=== PATIENT | female | born 1975 | race Caucasian/White ===

== ENCOUNTER 2016-06-07 00:42 | Emergency (ER) | payer SELFPAY ==
[2016-06-07 06:08] LABS: ABSOLUTE EOSINOPHILS # (AUTO) 0.1 10^3/uL (0.0-0.6); ABSOLUTE LYMPHOCYTES (AUTO) 3.3 10^3/uL (0.5-4.7); ABSOLUTE MONOCYTES (AUTO) 0.6 10^3/uL (0.1-1.4); ABSOLUTE NEUT (AUTO) 7.8 10^3/uL (1.7-8.2); BASOPHILS % (AUTO) 0.4 % (0-2); EOSINOPHILS % (AUTO) 1.1 % (0-6); HEMOGLOBIN 12.9 g/dL (12.0-15.5); HGB HCT DIFFERENCE 0.7; LYMPHOCYTES % (AUTO) 27.4 % (13-45); MEAN CORPUSCULAR HEMOGLOBIN 30.6 pg (27.0-33.4); MEAN CORPUSCULAR HGB CONC 34.1 g/dL (32.0-36.0); MEAN CORPUSCULAR VOLUME 90 fl (80-97); MONOCYTES % (AUTO) 5.4 % (3-13); RED BLOOD COUNT 4.23 10^6/uL (3.72-5.28); RED CELL DISTRIBUTION WIDTH 13.6 % (11.5-14.0); SEGMENTED NEUTROPHILS % (AUTO) 65.7 % (42-78); WHITE BLOOD COUNT 11.9 10^3/uL (4.0-10.5)
[2016-06-07 06:12] LABS: APPEARANCE,URINE SLIGHTLY-CLOUDY; BILIRUBIN,URINE NEGATIVE (NEGATIVE); CALCIUM OXALATE CRYSTALS,URINE TOO NUMEROUS TO CNT /HPF; GLUCOSE, URINE NEGATIVE (NEGATIVE); KETONES,URINE NEGATIVE (NEGATIVE); LEUKOCYTE ESTERASE,URINE NEGATIVE (NEGATIVE); NITRITE,URINE NEGATIVE (NEGATIVE); PROTEIN,URINE NEGATIVE (NEGATIVE); URINE SPECIFIC GRAVITY 1.036; UROBILINOGEN,URINE NEGATIVE mg/dL (<2.0)
[2016-06-07 06:24] LABS: ALANINE AMINOTRANSFERASE 29 U/L (9-52); ALBUMIN 4.4 g/dL (3.5-5.0); ALKALINE PHOSPHATASE 101 U/L (38-126); ANION GAP 15 (5-19); ASPARTATE AMINO TRANSFERASE 19 U/L (14-36); BILIRUBIN,DIRECT 0.4 mg/dL (0.0-0.4); BILIRUBIN,TOTAL 0.6 mg/dL (0.2-1.3); BLOOD UREA NITROGEN 19 mg/dL (7-20); CALCIUM 9.5 mg/dL (8.4-10.2); CARBON DIOXIDE 21 mmol/L (22-30); CHLORIDE 107 mmol/L (98-107); CREATININE RESULT 0.63 mg/dL (0.52-1.25); GLUCOSE 90 mg/dL (75-110); LIPASE 50.4 U/L (23-300); POTASSIUM 4.1 mmol/L (3.6-5.0); SODIUM 142.5 mmol/L (137-145); TOTAL PROTEIN 7.2 g/dL (6.3-8.2)
--- NOTE | 2016-06-07 07:18 | ER Document Report ---
ED General <GABBY REYEZ - Last Filed: 06/07/16 08:14> - General Mode of Arrival: Ambulatory Information source: Patient TRAVEL OUTSIDE OF THE [place] IN LAST 30 DAYS: No - HPI Patient complains to provider of: Abdominal Pain Onset: Other - 2 weeks ago Associated symptoms: Other - see notes above <DARRELL ABRAMS - Last Filed: 06/07/16 08:40> - General Chief Complaint: Abdominal Pain Stated Complaint: ABDOMINAL PAIN Notes: 40 year old female with history of ovarian cysts presents to the ED complaining of LLQ abdominal pain that has been present for 2 weeks. Patient reports that the pain feels similar to previous cysts. Patient denies being on her period. Patient is additionally complaining of "chronic" left knee pain that is "unbearable" which has been present for the past 2 years. Patient reports that the knee pain went away for 1 year, but has come back since January 2016. Patient had an X-ray performed on the knee and was told she has water around the knee and has signs of deteriorating bone. Patient is also complaining of a lump to the left neck which has been present for 1 year. Patient is currently on Ativan for anxiety as prescribed by [facility]. Patient reports that she does not go to [facility] anymore. (DARRELL ABRAMS) - Related Data Allergies/Adverse Reactions: No Known Allergies Allergy (Verified 06/07/16 05:58) Past Medical History - General Information source: Patient - Social History Smoking Status: Unknown if Ever Smoked Family History: Reviewed & Not Pertinent, Arthritis, CVA, Hyperlipidemia, Hypertension Patient has suicidal ideation: No Patient has homicidal ideation: No Renal/ Medical History: Reports: Hx Ovarian Cysts. Denies: Hx Peritoneal Dialysis Psychiatric Medical History: Reports: Hx Anxiety Surgical Hx: Negative - Immunizations Immunizations up to date: No Hx Diphtheria, Pertussis, Tetanus Vaccination: No <DARRELL ABRAMS - Last Filed: 06/07/16 08:40> Review of Systems - Review of Systems Constitutional: No symptoms reported EENT: No symptoms reported Cardiovascular: No symptoms reported Respiratory: No symptoms reported Gastrointestinal: See HPI, Abdominal pain - LLQ Genitourinary: No symptoms reported Female Genitourinary: No symptoms reported Musculoskeletal: See HPI, Joint pain - Left knee pain Skin: See HPI, Lumps - left neck Hematologic/Lymphatic: No symptoms reported Neurological/Psychological: No symptoms reported <JOSE ALBERTODARRELL - Last Filed: 06/07/16 08:40> Physical Exam - General General appearance: Alert In distress: None - HEENT Head: Normocephalic, Atraumatic Eyes: Normal Extraocular movements intact: Yes Pupils: PERRL Neck: Other - palpable mobile lump to the left neck with no sign of abscess or cellulitis.. No: Normal - Respiratory Respiratory status: No respiratory distress Breath sounds: Normal - Cardiovascular Rhythm: Regular Heart sounds: Normal auscultation - Abdominal Inspection: Normal Distension: No distension Tenderness: Nontender - Back Back: Normal - Extremities General upper extremity: Normal inspection, Normal ROM General lower extremity: Normal inspection, Normal ROM - Neurological Neuro grossly intact: Yes Cognition: Normal Orientation: AAOx4 Geovanni Coma Scale Eye Opening: Spontaneous Geovanni Coma Scale Verbal: Oriented Geovanni Coma Scale Motor: Obeys Commands [place] Coma Scale Total: 15 Speech: Normal - Psychological Associated symptoms: Normal affect, Normal mood - Skin Skin Temperature: Warm Skin Moisture: Dry Skin Color: Normal <DARRELL ABRAMS - Last Filed: 06/07/16 08:40> - Vital signs Vitals: Temp Pulse Resp BP Pulse Ox 98.6 F 80 18 119/68 99 06/07/16 02:32 06/07/16 02:32 06/07/16 02:32 06/07/16 02:32 06/07/16 02:32 Course - Laboratory Result Diagrams: 06/07/16 04:53 06/07/16 04:53 <GABBY REYEZ - Last Filed: 06/07/16 08:14> - Laboratory Result Diagrams: 06/07/16 04:53 06/07/16 04:53 <DARRELL ABRAMS - Last Filed: 06/07/16 08:40> - Re-evaluation Re-evalutation: 06/07/16 08:07 Patient presents to the emergency department with multiple planes most of which been going on for months to years. She has been seen and evaluated for similar complaints in the past including recurrent ovarian cysts does not follow primary care physician or [employer] physician. She is not . She has the same ovarian cyst a little bit larger than she didn't was last checked 2 months ago. Also has chronic intermittent left knee pain for years. And she says she's been palpating a mass the left side of her neck it's been there for a year that is not change and signed recently no associated fever or chills she is well- appearing nontoxic in no acute distress. She has a palpable left posterior neck mass which is mobile not abscess or cellulitis. She states it is felt consistently the same for about 6 months. Discussed with her that she'll need to follow up next 2-3 days and get a referral for biopsy make sure this isn't cancer. In addition to that her left knee is not acute no recent injuries it's recurrent over the last couple years. 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 It is not red hot or swollen and there is no ligament laxity. Have her follow-up with the primary care physician to address all chronic medical conditions including mass knee ovarian cyst. Discussed reasons for ED return sooner (GABBY REYEZ) - Vital Signs Vital signs: Temp Pulse Resp BP Pulse Ox 98.6 F 80 18 119/68 99 06/07/16 02:32 06/07/16 02:32 06/07/16 02:32 06/07/16 02:32 06/07/16 02:32 - Laboratory Laboratory results interpreted by me: 06/07/16 06/07/16 06/07/16 04:53 04:53 04:53 WBC 11.9 H Carbon Dioxide 21 L Urine Blood MODERATE H Discharge <GABBY REYEZ - Last Filed: 06/07/16 08:14> <DARRELL ABRAMS - Last Filed: 06/07/16 08:40> - Discharge Clinical Impression: ovarian cyst, chronic left knee pain, Mass of left side of neck Disposition: HOME, SELF-CARE Additional Instructions: Ovarian Cyst Your examination shows the presence of an ovarian cyst. This is a ball of fluid attached to the ovary. Ovarian cysts in women of child-bearing age are usually innocent. However, the cyst may cause pain when it grows or bursts. An innocent ovarian cyst will usually go away by itself. When the cyst becomes painful, you should rest. Pain medication may be required. Some women find a hot water bottle soothing. The pain usually resolves within one or two days. After menopause, an ovarian cyst may mean a tumor, and requires more aggressive evaluation -- usually surgery is recommended to remove or biopsy the cyst. A very large cyst requires evaluation at any age. Most cysts (even the innocent ones) require follow-up examination. Call the doctor or return at any time if the pain increases significantly, if you become faint, or if you experience vaginal bleeding. Recurrent left knee pain Palpable mass to the left neck that has been there for a year. I'm giving you a primary care physician to follow up with in 2-3 days for your recurrent left knee pain your ovarian cyst and referral to an [employer] physician for possible control manage ovarian cyst. Also a mass in her left neck that he states been there for a year need to follow-up in 2-3 days get a biopsy make sure this is not cancer. Return for increasing worsening or new symptoms Prescriptions: Naproxen [Naprosyn 375 Mg Tablet] 375 mg PO DAILY #12 tablet Referrals: [facility] [Provider Group] (Call for appointment to be seen in 2- 3 days return for increasing worsening or new symptoms) Scribe Attestation: 06/07/16 08:08 I personally performed the services described in the documentation reviewed the documentation recorded by my scribe in my presence and it accurately and completely records my words and actions (GABBY REYEZ) Scribe Documentation - Scribe Written by Elizabeth:: Elizabeth Conti, 06/07/2016 0839 acting as scribe for :: Kareem <DARRELL ABRAMS - Last Filed: 06/07/16 08:40>
[2016-06-07 08:27] VITALS: BP 122/6
== END 2016-06-07 08:25 | disposition home or self-care (01) ==
LOC: ER 00:42
DX: N83.202 Unspecified ovarian cyst, left side (principal); M25.562 Pain in left knee; R22.1 Localized swelling, mass and lump, neck; R10.9 Unspecified abdominal pain; R10.32 Left lower quadrant pain; Z79.899 Other long term (current) drug therapy
CPT/HCPCS: 36415; 74176; 80053; 81001; 81025; 83690; 85025; 99284

== ENCOUNTER 2016-10-08 16:51 | Emergency (ER) | payer SELFPAY ==
[2016-10-08] MEDS ORDERED: NORMAL SALINE 1000 ML 1,000 ML IV PRN (17:52)
[2016-10-08] MEDS ORDERED: MORPHINE SULFATE 10 MG/ML INJ IV ONE (17:52)
--- NOTE | 2016-10-08 17:53 | ER Document Report ---
ED Medical Screen (RME) - General Chief Complaint: Lower Abdominal Pain Stated Complaint: ABDOMINAL PAIN Time Seen by Provider: 10/08/16 17:52 Notes: Patient with 2 days of left flank and left lower quadrant abdominal pain. She also had some vaginal discharge. She states she does not know if she is . She has had no vaginal bleeding. No diarrhea. She has had some nausea but no vomiting. She states she has had similar pain in the past when she has had cysts on her ovary. No fevers. TRAVEL OUTSIDE OF THE [place] IN LAST 30 DAYS: No - Related Data Allergies/Adverse Reactions: No Known Allergies Allergy (Verified 10/08/16 17:15) Past Medical History - Social History Chew tobacco use (# tins/day): No Frequency of alcohol use: None Drug Abuse: None Renal/ Medical History: Reports: Hx Ovarian Cysts. Denies: Hx Peritoneal Dialysis Psychiatric Medical History: Reports: Hx Anxiety Surgical Hx: Negative - Immunizations Immunizations up to date: No Hx Diphtheria, Pertussis, Tetanus Vaccination: No Physical Exam - Vital signs Vitals: Temp Pulse Resp BP Pulse Ox 98.5 F 98 19 110/63 98 10/08/16 17:17 10/08/16 17:17 10/08/16 17:17 10/08/16 17:17 10/08/16 17:17 Course - Vital Signs Vital signs: Temp Pulse Resp BP Pulse Ox 98.5 F 98 19 110/63 98 10/08/16 17:17 10/08/16 17:17 10/08/16 17:17 10/08/16 17:17 10/08/16 17:17
[2016-10-08 19:16] LABS: APPEARANCE,URINE SLIGHTLY-CLOUDY; BILIRUBIN,URINE NEGATIVE (NEGATIVE); GLUCOSE, URINE NEGATIVE (NEGATIVE); KETONES,URINE NEGATIVE (NEGATIVE); LEUKOCYTE ESTERASE,URINE TRACE (NEGATIVE); NITRITE,URINE NEGATIVE (NEGATIVE); PROTEIN,URINE NEGATIVE (NEGATIVE); URINE SPECIFIC GRAVITY 1.031; UROBILINOGEN,URINE NEGATIVE mg/dL (<2.0)
[2016-10-08 19:51] LABS: ABSOLUTE BASOPHILS # (AUTO) 0.1 10^3/uL (0.0-0.2); ABSOLUTE EOSINOPHILS # (AUTO) 0.1 10^3/uL (0.0-0.6); ABSOLUTE LYMPHOCYTES (AUTO) 2.9 10^3/uL (0.5-4.7); ABSOLUTE MONOCYTES (AUTO) 0.6 10^3/uL (0.1-1.4); BASOPHILS % (AUTO) 0.7 % (0-2); EOSINOPHILS % (AUTO) 0.7 % (0-6); HEMATOCRIT 38.6 % (36.0-47.0); HEMOGLOBIN 13.4 g/dL (12.0-15.5); HGB HCT DIFFERENCE 1.6; LYMPHOCYTES % (AUTO) 22.8 % (13-45); MEAN CORPUSCULAR HEMOGLOBIN 31.3 pg (27.0-33.4); MEAN CORPUSCULAR HGB CONC 34.7 g/dL (32.0-36.0); MEAN CORPUSCULAR VOLUME 90 fl (80-97); MONOCYTES % (AUTO) 4.8 % (3-13); RED BLOOD COUNT 4.29 10^6/uL (3.72-5.28); RED CELL DISTRIBUTION WIDTH 13.2 % (11.5-14.0); WHITE BLOOD COUNT 12.7 10^3/uL (4.0-10.5)
[2016-10-08 20:09] LABS: ALANINE AMINOTRANSFERASE 28 U/L (9-52); ALBUMIN 4.2 g/dL (3.5-5.0); ALKALINE PHOSPHATASE 85 U/L (38-126); ANION GAP 10 (5-19); ASPARTATE AMINO TRANSFERASE 16 U/L (14-36); BILIRUBIN,DIRECT 0.4 mg/dL (0.0-0.4); BILIRUBIN,TOTAL 0.4 mg/dL (0.2-1.3); BLOOD UREA NITROGEN 15 mg/dL (7-20); CALCIUM 9.6 mg/dL (8.4-10.2); CARBON DIOXIDE 23 mmol/L (22-30); CHLORIDE 105 mmol/L (98-107); CREATININE RESULT 0.67 mg/dL (0.52-1.25); GLUCOSE 106 mg/dL (75-110); LIPASE 43.5 U/L (23-300); POTASSIUM 4.1 mmol/L (3.6-5.0); TOTAL PROTEIN 6.7 g/dL (6.3-8.2)
--- NOTE | 2016-10-08 20:53 | RADIOLOGY REPORT (SQ) ---
EXAM DESCRIPTION: CT ABD/PELVIS NO ORAL OR IV COMPLETED DATE/TIME: 10/08/2016 8:42 pm REASON FOR STUDY: left sided abd pain COMPARISON: 06/07/2016 TECHNIQUE: CT scan of the abdomen and pelvis performed without intravenous or oral contrast. Images reviewed with lung, soft tissue, and bone windows. Reconstructed coronal and sagittal MPR images revi ewed. All images stored on PACS. All CT scanners at this facility use dose modulation, iterative reconstruction, and/or weight based d osing when appropriate to reduce radiation dose to as low as reasonably achievable (ALARA). [facility]: Dose Right [facility]: CareDose [facility]: Dose Right [facility]: Teradose 4D [facility]: Smart Goldbely RADIATION DOSE: Up-to-date CT equipment and radiation dose reduction techniques were employed. CTDIv ol: 7.3 mGy. DLP: 366 mGy-cm.mGy. LIMITATIONS: None. FINDINGS: LOWER CHEST: No significant findings. No nodules or infiltrates. NON-CONTRASTED LIVER, SPLEEN, ADRENALS: Evaluation limited by lack of IV contrast. No identified sign ificant masses. PANCREAS: No masses. No peripancreatic inflammatory changes. GALLBLADDER: No identified stones by CT criteria. No inflammatory changes to suggest cholecystitis. RIGHT KIDNEY AND URETER: No suspicious masses. Assessment limited by lack of IV contrast. No signif icant calcifications. No hydronephrosis or hydroureter. LEFT KIDNEY AND URETER: No suspicious masses. Assessment limited by lack of IV contrast. No signifi cant calcifications. No hydronephrosis or hydroureter. AORTA AND RETROPERITONEUM: No aneurysm. No retroperitoneal masses or adenopathy. BOWEL AND PERITONEAL CAVITY: No obvious masses or inflammatory changes. No free fluid. APPENDIX: Normal. PELVIS, BLADDER, AND ABDOMINAL WALL:Similar 3.8 cm left ovarian fullness. No free fluid. Bladder nor mal. BONES: No significant findings. OTHER: No other significant finding. IMPRESSION: No acute inflammatory changes. TECHNICAL DOCUMENTATION: JOB ID: [id number] Quality ID # [id number]: Final reports with documentation of one or more dose reduction techniques (e.g., Au tomated exposure control, adjustment of the mA and/or kV according to patient size, use of iterative reconstruction technique) 2010 [employer]- All Rights Reserved
[2016-10-08] MEDS ORDERED: HYDROCODONE/ACETAMINOPHEN 10-325 MG TABLET PO ONE (23:35)
[2016-10-08] MEDS ORDERED: KETOROLAC TROMETHAMINE INJ/PF 30 MG/1 ML SDV IV ONE (23:35)
--- NOTE | 2016-10-08 23:41 | ER Document Report ---
ED GI/ - General Chief Complaint: Lower Abdominal Pain Stated Complaint: ABDOMINAL PAIN Time Seen by Provider: 10/08/16 17:52 TRAVEL OUTSIDE OF THE [place] IN LAST 30 DAYS: No - HPI Notes: 10/08/16 23:38 41-year-old female with history of ovarian cysts presents with 2 days of left flank and left lower abdominal pain. Describes it as sharp radiating to her left flank with some associated vaginal discharge a little bit of that has been malodorous. She has had some pain similar with cyst but this seems a little bit different. No vaginal bleeding. Denies stool change or diarrhea. No vomiting but has had some mild nausea. Denies fever. Denies trauma. - Related Data Allergies/Adverse Reactions: No Known Allergies Allergy (Verified 10/08/16 17:15) Past Medical History - Social History Smoking Status: Current Every Day Smoker Chew tobacco use (# tins/day): No Frequency of alcohol use: None Drug Abuse: None Family History: Reviewed & Not Pertinent, Arthritis, CVA, Hyperlipidemia, Hypertension Renal/ Medical History: Reports: Hx Ovarian Cysts. Denies: Hx Peritoneal Dialysis Psychiatric Medical History: Reports: Hx Anxiety Surgical Hx: Negative - Immunizations Immunizations up to date: No Hx Diphtheria, Pertussis, Tetanus Vaccination: No Review of Systems - Review of Systems -: Yes All other systems reviewed and negative Physical Exam - Vital signs Vitals: Temp Pulse Resp BP Pulse Ox 98.5 F 98 19 110/63 98 10/08/16 17:17 10/08/16 17:17 10/08/16 17:17 10/08/16 17:17 10/08/16 17:17 Interpretation: Normal - Notes Notes: GENERAL: VS as per nursing doc. Well-appearing, well-nourished and in no acute distress. Comfortably lying talking with friends. HEAD: Atraumatic, normocephalic. EYES: Pupils equal round and reactive to light, extraocular movements intact, sclera anicteric, no conjunctival injection or discharge. ENT: Nares patent, oropharynx clear without exudates, moist mucous membranes. NECK: Normal range of motion, supple without lymphadenopathy. LUNGS: Breath sounds clear to auscultation bilaterally and equal. No wheezes rales or rhonchi. HEART: Regular rate and rhythm without murmurs. ABDOMEN: Soft, mild tenderness in the left lower quadrant left pelvic region, normoactive bowel sounds. No guarding, no rebound. No masses appreciated. No [place] sign. BACK: No CVA tenderness. EXTREMITIES: Normal range of motion, no calf tenderness, no edema. NEUROLOGICAL: Cranial nerves grossly intact. Normal speech. Normal sensory and motor exams. No gross cerebellar abnormalities. PSYCH: Normal mood, normal affect. SKIN: Warm, dry, normal turgor, no lesions noted. - Genitourinary External exam: Normal Speculum exam: Cervix closed, Vaginal discharge, Other - Mild green discharge. Moderate tenderness on exam with particular left adnexal tenderness but no clear mass. Vaginal bleeding: None Course - Re-evaluation Re-evalutation: 10/08/16 23:42 CT scan showed "a similar fullness 3.8 cm in the left ovarian region". This appears to area where she has been hurting and this is persisting since a CT compared in May. Discussed with the patient for follow-up. She voices understanding of this and mandatory [employer] follow-up. As she is having a little elevated white count with some malodorous discharge, we will treat her for a possible infectious process. I doubt that this is a tubo-ovarian abscess by history and duration of CT findings. - Vital Signs Vital signs: Temp Pulse Resp BP Pulse Ox 98.5 F 98 19 110/63 98 10/08/16 17:17 10/08/16 17:17 10/08/16 17:17 10/08/16 17:17 10/08/16 17:17 - Laboratory Result Diagrams: 10/08/16 19:30 10/08/16 19:30 Laboratory results interpreted by me: 10/08/16 10/08/16 18:45 19:30 WBC 12.7 H Absolute Neutrophils 9.0 H Urine Blood LARGE H Ur Leukocyte Esterase TRACE H Discharge - Discharge Clinical Impression: Pelvic pain Condition: Good Instructions: Oral Narcotic Medication ([facility]), Pelvic Pain ([facility]) Additional Instructions: As discussed, you have a persisting abnormality in your left pelvis, possibly cyst versus other abnormality. Please ensure you keep your appointment with the medical attendant next month as scheduled. Start initially with an anti- inflammatory such as ibuprofen or Aleve. Return for emergency or concern. Finished all of the antibiotic at a single sitting as discussed. Prescriptions: Hydrocodone/Acetaminophen [[place] 5-325 mg Tablet] 1 tab PO Q4HP PRN #10 tablet PRN Reason: For Pain Azithromycin [Zithromax 250 mg Tablet] 1,000 mg PO ASDIR PRN #4 tablet PRN Reason:
[2016-10-09] MEDS ORDERED: CEFTRIAXONE INJ 250 MG VIAL IM ONE (00:34)
[2016-10-09 01:04] VITALS: BP 119/72
[2016-10-09 02:12] LABS: CHLAM PCR NOT DETECTED (NOT DETECT)
== END 2016-10-09 01:01 | disposition home or self-care (01) ==
LOC: ER 16:51
DX: R10.2 Pelvic and perineal pain (principal); N89.8 Other specified noninflammatory disorders of vagina; R11.0 Nausea; F17.200 Nicotine dependence, unspecified, uncomplicated; Z87.42 Personal history of other diseases of the female genital tract
CPT/HCPCS: 99284; 96372; 96374; 96375; 36415; 87210; 83690; 85025; 81025; 80053; 81001; 87491; 87591; 74176; J1885; J2270; J7030; J0696

== ENCOUNTER 2017-03-22 11:17 | Emergency (ER) | payer SELFPAY ==
[2017-03-22 11:24] VITALS: BP 117/76
--- NOTE | 2017-03-22 11:42 | ER Document Report ---
HPI - HPI Pain Level: 4 Notes: Patient is a 41-year-old female with no significant past medical history presents ED complaining of nasal congestion/discharge, ear popping, dry nonproductive cough 2 weeks. Patient states that she still eating and drinking without difficulties. She has been using esik-clf-thchapf meds with minimal relief. She is urinating normally and having normal bowel movements. Patient states that she is ambulatory without any development of chest pain or dyspnea on exertion. Patient does admit to smoking but denies any IV drug use. Patient states that otherwise she is performing her ADLs without any difficulties. No other concerns or complaints at this time. Denies any headache, fever, neck pain, sore throat, chest pain, palpitations, syncope, shortness of breath, wheeze, dyspnea, abdominal pain, nausea/vomiting/diarrhea, urinary retention, dysuria, hematuria, or rash. - ROS Systems Reviewed and Negative: Yes All other systems reviewed and negative - REPRODUCTIVE Reproductive: DENIES: : Past Medical History - Social History Smoking Status: Current Some Day Smoker Family History: Reviewed & Not Pertinent, Arthritis, CVA, Hyperlipidemia, Hypertension Renal/ Medical History: Reports: Hx Ovarian Cysts. Denies: Hx Peritoneal Dialysis Psychiatric Medical History: Reports: Hx Anxiety - Immunizations Immunizations up to date: No Hx Diphtheria, Pertussis, Tetanus Vaccination: No Vertical Provider Document - CONSTITUTIONAL Agree With Documented VS: Yes Notes: PHYSICAL EXAMINATION: GENERAL: Well-appearing, well-nourished and in no acute distress. A&Ox4. Answers questions appropriately. Moves comfortably w/o notable distress HEAD: Atraumatic, normocephalic. EYES: Pupils equal round and reactive to light, extraocular movements intact, sclera anicteric, conjunctiva are normal. ENT: EAC clear b/l. TM's intact b/l without erythema, fluid, or perforation. Nares patent and with clear discharge. oropharynx no erythema without exudates. No tonsilar hypertrophy without erythema or exudate. No palatine shift. Uvula midline. No tongue protrusion. No drooling, hoarseness, or airway compromise. Moist mucous membranes. No sinus tenderness. NECK: Normal range of motion, supple without lymphadenopathy. No rigidity/ meningismus. LUNGS: Breath sounds clear to auscultation bilaterally and equal. No wheezes rales or rhonchi. No retractions HEART: Regular rate and rhythm without murmurs, rubs, gallops. ABDOMEN: Soft, nontender, nondistended abdomen. No guarding, no rebound. No masses appreciated. Normal bowel sounds present. No CVA tenderness bilaterally. No hepatosplenomegaly. NEUROLOGICAL: Normal speech, normal gait. Normal sensory, motor exams PSYCH: Normal mood, normal affect. SKIN: Warm, Dry, normal turgor, no rashes or lesions noted. - INFECTION CONTROL TRAVEL OUTSIDE OF THE [place] IN LAST 30 DAYS: No - RESPIRATORY O2 Sat by Pulse Oximetry: 98 Course - Re-evaluation Re-evalutation: 03/22/17 11:53 Patient is an afebrile, well-hydrated, 41-year-old female who presents the ED with acute URI, suspect viral. Vitals are stable. PE is otherwise unremarkable. No labs or imaging warranted at this time based on H&P. Patient is tolerating p.o. without any difficulties. Patient's lungs are clear to all station bilaterally. She has no significant cardiopulmonary medical history. Low suspicion for any meningitis, sepsis, peritonsillar/pharyngeal abscess, respiratory compromise, Rhett's, or other emergent systemic condition at this time. Patient is aware this condition can change from initial presentation and she needs to monitor symptoms closely. Because of the longevity of the illness itself with failing treatment with outpatient conservative measures, I will send her home with a pocket prescription for Zithromax that she may begin with ongoing/worsening symptoms 3 days. Conservative measures otherwise for symptoms. Recheck with your PCM in 3-5 days. Return to the ED with any worsening/concerning symptoms otherwise as reviewed in discharge. Patient is in agreement. - Vital Signs Vital signs: Temp Pulse Resp BP Pulse Ox 98.7 F 101 H 14 117/76 98 03/22/17 11:22 03/22/17 11:22 03/22/17 11:22 03/22/17 11:22 03/22/17 11:22 Discharge - Discharge Clinical Impression: Acute URI Condition: Stable Disposition: HOME, SELF-CARE Instructions: Upper Respiratory Illness ([facility]) Additional Instructions: Maintain adequate fluid intake Take meds as directed-may begin zithromax with ongoing/worsening symptoms x3 days. tylenol/ibuprofen as needed over the counter cold medication as needed for symptoms Humidified air may help Wash your hands regularly Wear a mask when coughing F/u: with your PCM in 3-5 days for a recheck Return to the ED with any fever, worsening pain, chest pain, palpitations, syncope, worsening SO, neck pain/stiffness, shortness of breath, wheezing, drooling, trouble swallowing/breathing, abdominal pain, n/v/d, rash, or worsening/concerning symptoms otherwise. Prescriptions: Azithromycin [Zithromax 250 mg Tablet] 250 mg PO ASDIR PRN #6 tablet PRN Reason: Forms: Smoking Cessation Education Referrals: [facility] [Provider Group] - Follow up as needed [facility] [Provider Group] - Follow up as needed
== END 2017-03-22 11:56 | disposition home or self-care (01) ==
LOC: ER 11:17
DX: J06.9 Acute upper respiratory infection, unspecified (principal); R09.81 Nasal congestion; R09.89 Other specified symptoms and signs involving the circulatory and respiratory systems; F17.200 Nicotine dependence, unspecified, uncomplicated
CPT/HCPCS: 99283

== ENCOUNTER 2017-12-01 12:32 | Emergency (ER) | payer SELFPAY ==
[2017-12-01 12:41] VITALS: BP 107/62
--- NOTE | 2017-12-01 12:54 | ER Document Report ---
ED Medical Screen (RME) - General Chief Complaint: Abdominal Pain Stated Complaint: LEFT SIDE ABDOMINAL PAIN Time Seen by Provider: 12/01/17 12:49 Mode of Arrival: Ambulatory Information source: Patient Notes: 42-year-old female presents emergency department complaints of left flank pain. Patient states that it is a sharp and stabbing pain located in the left flank. She denies any radiation of the pain. She eating or exacerbating factors. Patient's been taking [id number] medication without any relief of symptoms. Patient notes that she has had dysuria, increased urgency, increased frequency. Patient states that she is also been having abnormal vaginal discharge. She has had associated nausea for the last 2 days. She denies any vomiting, diarrhea, constipation. I have greeted and performed a rapid initial assessment of this patient. A comprehensive ED assessment and evaluation of the patient, analysis of test results and completion of the medical decision making process will be conducted by additional ED providers. PHYSICAL EXAMINATION: GENERAL: Well-appearing, well-nourished and in no acute distress. HEAD: Atraumatic, normocephalic. EYES: Pupils equal round extraocular movements intact, conjunctiva are normal. ENT: Nares patent NECK: Normal range of motion LUNGS: No respiratory distress Musculoskeletal: Normal range of motion NEUROLOGICAL: Normal speech, normal gait. PSYCH: Normal mood, normal affect. SKIN: Warm, Dry, normal turgor, no rashes or lesions noted. TRAVEL OUTSIDE OF THE [place] IN LAST 30 DAYS: No - Related Data Allergies/Adverse Reactions: No Known Allergies Allergy (Verified 10/08/16 17:15) Past Medical History Renal/ Medical History: Reports: Hx Ovarian Cysts. Denies: Hx Peritoneal Dialysis Psychiatric Medical History: Reports: Hx Anxiety - Immunizations Immunizations up to date: No Hx Diphtheria, Pertussis, Tetanus Vaccination: No Physical Exam - Vital signs Vitals: Temp Pulse Resp BP Pulse Ox 98.9 F 92 18 107/62 98 12/01/17 12:40 12/01/17 12:40 12/01/17 12:40 12/01/17 12:40 12/01/17 12:40 Course - Vital Signs Vital signs: Temp Pulse Resp BP Pulse Ox 98.9 F 92 18 107/62 98 12/01/17 12:40 12/01/17 12:40 12/01/17 12:40 12/01/17 12:40 12/01/17 12:40
--- NOTE | 2017-12-01 13:23 | ER Document Report ---
ED GI/ - General Chief Complaint: Abdominal Pain Stated Complaint: LEFT SIDE ABDOMINAL PAIN Time Seen by Provider: 12/01/17 12:49 Mode of Arrival: Ambulatory Notes: 42-year-old female complaining of left pelvis pain since Thursday. Thursday she started with urinary frequency. Feels similar to when she had a left ovarian cyst but the pain does radiate to the left flank. No fever or chills. No nausea or vomiting. No vaginal discharge or bleeding. TRAVEL OUTSIDE OF THE [place] IN LAST 30 DAYS: No - Related Data Allergies/Adverse Reactions: No Known Allergies Allergy (Verified 10/08/16 17:15) Past Medical History - General Information source: Patient - Social History Smoking Status: Current Every Day Smoker Chew tobacco use (# tins/day): No Frequency of alcohol use: None Drug Abuse: None Family History: Reviewed & Not Pertinent, Arthritis, CVA, Hyperlipidemia, Hypertension Patient has suicidal ideation: No Patient has homicidal ideation: No Renal/ Medical History: Reports: Hx Ovarian Cysts. Denies: Hx Peritoneal Dialysis Psychiatric Medical History: Reports: Hx Anxiety - Immunizations Immunizations up to date: No Hx Diphtheria, Pertussis, Tetanus Vaccination: No Review of Systems - Review of Systems Constitutional: No symptoms reported EENT: No symptoms reported Cardiovascular: No symptoms reported Respiratory: No symptoms reported Gastrointestinal: No symptoms reported Genitourinary: See HPI Female Genitourinary: See HPI Musculoskeletal: See HPI Skin: No symptoms reported Hematologic/Lymphatic: No symptoms reported Neurological/Psychological: No symptoms reported Physical Exam - Vital signs Vitals: Temp Pulse Resp BP Pulse Ox 98.9 F 92 18 107/62 98 12/01/17 12:40 12/01/17 12:40 12/01/17 12:40 12/01/17 12:40 12/01/17 12:40 Interpretation: Normal - General General appearance: Appears well, Alert - HEENT Head: Normocephalic, Atraumatic Eyes: Normal Pupils: PERRL Neck: Supple - Respiratory Respiratory status: No respiratory distress Chest status: Nontender Breath sounds: Normal Chest palpation: Normal - Cardiovascular Rhythm: Regular Heart sounds: Normal auscultation Murmur: No - Abdominal Inspection: Normal Distension: No distension Bowel sounds: Normal Tenderness: Tender - left pelvis and left lower quadrant Organomegaly: No organomegaly - Back Back: Normal, Tender - left si joint area - Extremities General upper extremity: Normal inspection, Nontender, Normal color, Normal ROM , Normal temperature General lower extremity: Normal inspection, Nontender, Normal color, Normal ROM , Normal temperature, Normal weight bearing. No: Krystina's sign - Neurological Neuro grossly intact: Yes Cognition: Normal Orientation: AAOx4 Geovanni Coma Scale Eye Opening: Spontaneous Geovanni Coma Scale Verbal: Oriented Geovanni Coma Scale Motor: Obeys Commands Geovanni Coma Scale Total: 15 Speech: Normal Motor strength normal: LUE, RUE, LLE, RLE Sensory: Normal - Psychological Associated symptoms: Normal affect, Normal mood - Skin Skin Temperature: Warm Skin Moisture: Dry Skin Color: Normal Skin irregularity: negative: Rash Course - Re-evaluation Re-evalutation: 12/01/17 15:14 There is 1+ bacteria in the urine I have added a urine culture. She is not . CBC and chemistry are normal. She is tender in the left lower quadrant radiates to her left flank. I am concerned about a obstructing stone or ovarian torsion and I was originally going to add a renal stone CT but she has had 4 abdominal or renal stone CTs since 2010 so I ordering a renal ultrasound and a transvaginal ultrasound. Regnancy test is negative. 12/01/17 15:14 12/01/17 16:40 Ultrasound shows a 4. 6 x 4.3 x 4.8 hemorrhagic cyst, normal vascular flow, right ovary not visualized due to bowel gas. The renal ultrasound is negative for any hydronephrosis or calcifications. We will treat for left ovarian cyst with Tylenol and Motrin and have her follow-up with CELL INSPECTOR. Also will treat with cephalexin pending the urine culture results and she had 1+ bacteria in her urine. 12/01/17 16:43 - Vital Signs Vital signs: Temp Pulse Resp BP Pulse Ox 98.9 F 92 18 107/62 98 12/01/17 12:40 12/01/17 12:40 12/01/17 12:40 12/01/17 12:40 12/01/17 12:40 - Laboratory Result Diagrams: 12/01/17 13:13 12/01/17 13:13 Laboratory results interpreted by me: 12/01/17 13:13 Urine Blood LARGE H Ur Leukocyte Esterase MODERATE H Discharge - Discharge Clinical Impression: Hemorrhagic left ovarian cyst, Urinary frequency, Left pelvic pain Condition: Good Disposition: HOME, SELF-CARE Instructions: Ovarian Cyst ([facility]), Ibuprofen (General) ([facility]), Acetaminophen, Urinary Tract Infection ([facility]), Cephalexin ([facility]) Additional Instructions: Drink plenty of fluids Warm compress Motrin up to 800 mg 3 times a day for pain and inflammation Tylenol up to 4000 mg a day for pain Follow-up her CELL INSPECTOR for this hemorrhagic left ovarian cyst keflex 500mg 4 x per day Urine culture is pending Return to the emergency room for any worsening of the symptoms or concerns Prescriptions: Ibuprofen [Motrin 800 mg Tablet] 800 mg PO Q8HP PRN #30 tablet PRN Reason: Cephalexin Monohydrate [Keflex 500 mg Capsule] 500 mg PO QID #28 capsule Referrals: FREDRICK VARGAS MD [ACTIVE STAFF] - Follow up as needed
[2017-12-01 13:54] LABS: APPEARANCE,URINE CLOUDY; BILIRUBIN,URINE NEGATIVE (NEGATIVE); COLOR,URINE YELLOW; GLUCOSE, URINE NEGATIVE (NEGATIVE); KETONES,URINE NEGATIVE (NEGATIVE); LEUKOCYTE ESTERASE,URINE MODERATE (NEGATIVE); NITRITE,URINE NEGATIVE (NEGATIVE); PROTEIN,URINE NEGATIVE (NEGATIVE); URINE SPECIFIC GRAVITY 1.015; UROBILINOGEN,URINE NEGATIVE mg/dL (<2.0)
[2017-12-01 14:00] LABS: ABSOLUTE EOSINOPHILS # (AUTO) 0.1 10^3/uL (0.0-0.6); ABSOLUTE LYMPHOCYTES (AUTO) 2.2 10^3/uL (0.5-4.7); ABSOLUTE MONOCYTES (AUTO) 0.5 10^3/uL (0.1-1.4); ABSOLUTE NEUT (AUTO) 7.1 10^3/uL (1.7-8.2); BASOPHILS % (AUTO) 0.3 % (0-2); EOSINOPHILS % (AUTO) 0.7 % (0-6); HEMATOCRIT 38.3 % (36.0-47.0); HEMOGLOBIN 13.8 g/dL (12.0-15.5); LYMPHOCYTES % (AUTO) 21.9 % (13-45); MEAN CORPUSCULAR HEMOGLOBIN 31.7 pg (27.0-33.4); MEAN CORPUSCULAR VOLUME 88 fl (80-97); MONOCYTES % (AUTO) 4.7 % (3-13); PLATELET COUNT 262 10^3/uL (150-450); RED BLOOD COUNT 4.35 10^6/uL (3.72-5.28); RED CELL DISTRIBUTION WIDTH 13.7 % (11.5-14.0); SEGMENTED NEUTROPHILS % (AUTO) 72.4 % (42-78); TOTAL CELLS COUNTED % (AUTO) 100 %; WHITE BLOOD COUNT 9.9 10^3/uL (4.0-10.5)
[2017-12-01 14:32] LABS: ALANINE AMINOTRANSFERASE 24 U/L (9-52); ALBUMIN 4.1 g/dL (3.5-5.0); ALKALINE PHOSPHATASE 99 U/L (38-126); ANION GAP 9 (5-19); ASPARTATE AMINO TRANSFERASE 14 U/L (14-36); BILIRUBIN,DIRECT 0.2 mg/dL (0.0-0.4); BILIRUBIN,TOTAL 0.7 mg/dL (0.2-1.3); BLOOD UREA NITROGEN 12 mg/dL (7-20); CALCIUM 9.1 mg/dL (8.4-10.2); CARBON DIOXIDE 26 mmol/L (22-30); CHLORIDE 104 mmol/L (98-107); GLUCOSE 90 mg/dL (75-110); POTASSIUM 4.1 mmol/L (3.6-5.0); SODIUM 139.2 mmol/L (137-145); TOTAL PROTEIN 6.9 g/dL (6.3-8.2)
--- NOTE | 2017-12-01 16:13 | RADIOLOGY REPORT (SQ) ---
EXAM DESCRIPTION: U/S RETROPERITON (RENAL/AORTA) COMPLETED DATE/TIME: 12/01/2017 4:02 pm REASON FOR STUDY: left pelvis pain, ? hydro, ? ovarian cyst COMPARISON: None. TECHNIQUE: Dynamic and static grayscale images acquired of the kidneys and bladder and recorded on P ACS. Additional selected color Doppler and spectral images recorded. LIMITATIONS: None. FINDINGS: RIGHT KIDNEY: Normal size. Normal echogenicity. No solid or suspicious masses. No hydronep hrosis. No calcifications. LEFT KIDNEY: Normal size. Normal echogenicity. No solid or suspicious masses. No hydronephrosis. No calcifications. BLADDER: No masses. OTHER FINDINGS: No other significant finding. IMPRESSION: NORMAL RENAL AND BLADDER ULTRASOUND. TECHNICAL DOCUMENTATION: JOB ID: [id number] [employer]- All Rights Reserved Reading location - IP/workstation name: [email or web address]
--- NOTE | 2017-12-01 16:18 | RADIOLOGY REPORT (SQ) ---
EXAM DESCRIPTION: U/S NON OB PEL TV W/DOPPLER COMPLETED DATE/TIME: 12/01/2017 4:02 pm REASON FOR STUDY: left pelvis pain, ? hydro, ? ovarian cyst COMPARISON: Pelvic ultrasound 10/20/2011 CT abdomen pelvis 10/08/2016 TECHNIQUE: Dynamic and static grayscale images acquired of the pelvis via transvaginal approach and recorded on PACS. Additional selected color Doppler and spectral images recorded. LIMITATIONS: None. FINDINGS: UTERUS: Contour normal. No mass. Uterus is 10 x 4 x 5.5 cm in size ENDOMETRIAL STRIPE: No focal or generalized thickening. No masses. Endometrial stripe 11 mm in thick ness CERVIX: Closed, multiple nabothian cysts. RIGHT OVARY AND DOPPLER: Ovary not visualized due to adnexal bowel gas and limited acoustic window. LEFT OVARY AND DOPPLER: Left ovary is 4.6 x 4.3 x 4.8 cm in size with a 4 cm hemorrhagic cyst. Mary l left ovary Doppler FREE FLUID: None noted. OTHER: No other significant finding. IMPRESSION: Hemorrhagic cyst left ovary. No ultrasound evidence of left ovary torsion TECHNICAL DOCUMENTATION: JOB ID: [id number]- All Rights Reserved Rev-07/03 Reading location - IP/workstation name: [email or web address]
[2017-12-01] MEDS ORDERED: CEPHALEXIN 500 MG CAPSULE PO ONE (16:38)
== END 2017-12-01 17:09 | disposition home or self-care (01) ==
LOC: ER 12:32
DX: N83.202 Unspecified ovarian cyst, left side (principal); R35.0 Frequency of micturition; R10.2 Pelvic and perineal pain; R10.814 Left lower quadrant abdominal tenderness; R82.71 Bacteriuria; F17.200 Nicotine dependence, unspecified, uncomplicated
CPT/HCPCS: 36415; 76770; 76830; 80053; 81001; 81025; 83690; 85025; 87086; 93976; 99284

== ENCOUNTER → 2018-07-27 | Outpatient (CLI) | payer BC ==
[2018-07-27 13:41] LABS: BACTERIA (WET MOUNT) 4+ BACTERIA SEEN; EPITHELIALS (WET MOUNT) 4+ EPITHELIALS SEEN; T.VAGINALIS (WET MOUNT) NO TRICHOMONAS SEEN; WBCS (WET MOUNT) FEW WBCS SEEN; YEAST (WET MOUNT) NO YEAST SEEN
[2018-07-27 15:11] LABS: CHLAM PCR NOT DETECTED (NOT DETECT); GON PCR NOT DETECTED (NOT DETECT)
== END ==
LOC: LAB 13:36
PROVIDERS: ATTEND Nurse Practitioner Family
DX: N76.0 Acute vaginitis (principal); R10.9 Unspecified abdominal pain; R35.0 Frequency of micturition
CPT/HCPCS: 87086; 87210; 87491; 87591

== ENCOUNTER 2018-10-13 13:11 | Emergency (ER) | payer BC ==
--- NOTE | 2018-10-13 14:09 | ER Document Report ---
ED Medical Screen (RME) - General Chief Complaint: Chest Pain Stated Complaint: CHEST PAIN Time Seen by Provider: 10/13/18 14:08 Mode of Arrival: Ambulatory Information source: Patient Notes: This 43-year-old female with history of anxiety presents emergency department with left-sided chest pain left arm pain. Reports symptoms started last night. Chest wall tender to palpate. Reports her rubbed her arm last night seem to help. Denies fever nausea vomiting diarrhea. Denies history of cardiac disease. Denies family history of cardiac disease. EKG shows sinus rhythm. Patient is alert and oriented calm no respiratory distress. I have greeted and performed a rapid initial assessment of this patient. A comprehensive ED assessment and evaluation of the patient, analysis of test results and completion of the medical decision making process will be conducted by additional ED providers. Dictation of this chart was performed using voice recognition software; therefore, there may be some unintended grammatical errors. TRAVEL OUTSIDE OF THE [place] IN LAST 30 DAYS: No - Related Data Allergies/Adverse Reactions: No Known Allergies Allergy (Verified 10/13/18 13:11) Past Medical History - Social History Frequency of alcohol use: None Drug Abuse: None Renal/ Medical History: Reports: Hx Ovarian Cysts. Denies: Hx Peritoneal Dialysis Psychiatric Medical History: Reports: Hx Anxiety - Immunizations Immunizations up to date: No Hx Diphtheria, Pertussis, Tetanus Vaccination: No Physical Exam - Vital signs Vitals: Temp Pulse Resp BP Pulse Ox 98.5 F 80 18 111/54 L 96 10/13/18 13:19 10/13/18 13:19 10/13/18 13:19 10/13/18 13:19 10/13/18 13:19 Course - Vital Signs Vital signs: Temp Pulse Resp BP Pulse Ox 98.5 F 80 18 111/54 L 96 10/13/18 13:19 10/13/18 13:19 10/13/18 13:19 10/13/18 13:19 10/13/18 13:19
[2018-10-13 16:22] LABS: ABSOLUTE BASOPHILS # (AUTO) 0.2 10^3/uL (0.0-0.2); ABSOLUTE EOSINOPHILS # (AUTO) 0.1 10^3/uL (0.0-0.6); ABSOLUTE LYMPHOCYTES (AUTO) 3.5 10^3/uL (0.5-4.7); ABSOLUTE MONOCYTES (AUTO) 0.5 10^3/uL (0.1-1.4); ABSOLUTE NEUT (AUTO) 8.4 10^3/uL (1.7-8.2); BASOPHILS % (AUTO) 1.3 % (0-2); EOSINOPHILS % (AUTO) 0.6 % (0-6); HEMATOCRIT 38.4 % (36.0-47.0); HEMOGLOBIN 13.4 g/dL (12.0-15.5); LYMPHOCYTES % (AUTO) 27.6 % (13-45); MEAN CORPUSCULAR HGB CONC 34.8 g/dL (32.0-36.0); MEAN CORPUSCULAR VOLUME 89 fl (80-97); MONOCYTES % (AUTO) 4.1 % (3-13); PLATELET COUNT 264 10^3/uL (150-450); RED BLOOD COUNT 4.31 10^6/uL (3.72-5.28); RED CELL DISTRIBUTION WIDTH 12.9 % (11.5-14.0); SEGMENTED NEUTROPHILS % (AUTO) 66.4 % (42-78); TOTAL CELLS COUNTED % (AUTO) 100 %; WHITE BLOOD COUNT 12.6 10^3/uL (4.0-10.5)
[2018-10-13 16:36] LABS: ALBUMIN 4.3 g/dL (3.5-5.0); ALKALINE PHOSPHATASE 113 U/L (38-126); ANION GAP 9 (5-19); ASPARTATE AMINO TRANSFERASE 17 U/L (14-36); BILIRUBIN,DIRECT 0.3 mg/dL (0.0-0.4); BILIRUBIN,TOTAL 0.5 mg/dL (0.2-1.3); BLOOD UREA NITROGEN 14 mg/dL (7-20); CALCIUM 9.4 mg/dL (8.4-10.2); CARBON DIOXIDE 25 mmol/L (22-30); CHLORIDE 106 mmol/L (98-107); GLUCOSE 87 mg/dL (75-110); TOTAL PROTEIN 7.1 g/dL (6.3-8.2)
--- NOTE | 2018-10-13 16:41 | ER Document Report ---
ED General - General Chief Complaint: Chest Pain Stated Complaint: CHEST PAIN Time Seen by Provider: 10/13/18 14:08 Mode of Arrival: Ambulatory Notes: 43-year-old female with history of anxiety presents to the emergency department with left arm pain and chest pain since last night. Patient states that the arm pain is worse than the chest pain and starts in her wrist and moves up into her shoulder and is stabbing in nature. Patient is concerned because she is never had this before. Patient states the chest pain is very dull and mild and does not radiate to her neck or anywhere else. Patient states that she had some cold sweats last night but denies shortness of breath or nausea. No significant personal or family cardiac history. No hypertension or taking any medications. No recent illness. No other complaints TRAVEL OUTSIDE OF THE [place] IN LAST 30 DAYS: No - Related Data Allergies/Adverse Reactions: No Known Allergies Allergy (Verified 10/13/18 13:11) Past Medical History - General Information source: Patient - Social History Smoking Status: Current Every Day Smoker Frequency of alcohol use: None Drug Abuse: None Family History: Reviewed & Not Pertinent, Arthritis, CVA, Hyperlipidemia, Hypertension Patient has suicidal ideation: No Patient has homicidal ideation: No Renal/ Medical History: Reports: Hx Ovarian Cysts. Denies: Hx Peritoneal Dialysis Psychiatric Medical History: Reports: Hx Anxiety - Immunizations Immunizations up to date: No Hx Diphtheria, Pertussis, Tetanus Vaccination: No Review of Systems - Review of Systems Constitutional: See HPI EENT: No symptoms reported Cardiovascular: See HPI Respiratory: See HPI Gastrointestinal: See HPI Genitourinary: No symptoms reported Female Genitourinary: No symptoms reported Musculoskeletal: See HPI Skin: No symptoms reported Hematologic/Lymphatic: No symptoms reported Neurological/Psychological: No symptoms reported Physical Exam - Vital signs Vitals: Temp Pulse Resp BP Pulse Ox 98.5 F 80 18 111/54 L 96 10/13/18 13:19 10/13/18 13:19 10/13/18 13:19 10/13/18 13:19 10/13/18 13:19 - Notes Notes: PHYSICAL EXAMINATION: Reviewed vital signs and charting by RN GENERAL: Alert, interacts well. No acute distress. HEAD: Normocephalic, atraumatic. EYES: Pupils equal and round. Extraocular movements intact. ENT: Oral mucosa moist, tongue midline. NECK: Full range of motion. Trachea midline. LUNGS: Clear to auscultation bilaterally, no wheezes, rales, or rhonchi. No respiratory distress. HEART: Regular rate and rhythm. No murmur ABDOMEN: soft, non-tender. No distention. Bowel sounds present EXTREMITIES: Moves all 4 extremities spontaneously. No edema, No cyanosis. PSYCH: Normal affect, normal mood. SKIN: Warm, dry, normal turgor. No rashes or lesions noted. Course - Re-evaluation Re-evalutation: 10/13/18 16:42 Overall well-appearing. Patient presents with some arm and chest pain. Basic lab work has been ordered. An EKG was performed which showed a normal sinus rhythm with a rate of 80. 10/13/18 16:59 All lab work has returned. Patient's heart score is 0. I have very low concern for ACS, aortic aneurysm, aortic dissection, PE, or any other life-threatening etiologies at this time. Patient's pain is most likely musculoskeletal in nature and potentially secondary to anxiety. I explained all this to patient and she was reassured with the results. At this time she is stable for discharge with strict return precautions. - Vital Signs Vital signs: Temp Pulse Resp BP Pulse Ox 98.5 F 80 18 111/54 L 96 10/13/18 13:19 10/13/18 13:19 10/13/18 13:19 10/13/18 13:19 10/13/18 13:19 - Laboratory Result Diagrams: 10/13/18 14:19 10/13/18 14:19 Laboratory results interpreted by me: 10/13/18 14:19 WBC 12.6 H Absolute Neuts (auto) 8.4 H Discharge - Discharge Clinical Impression: Left arm pain Chest pain Qualifiers: Chest pain type: unspecified Qualified Code(s): R07.9 - Chest pain, unspecified Condition: Good Disposition: HOME, SELF-CARE Additional Instructions: You were seen today for chest pain. The exact cause of your pain is unclear. However, based on your cardiac enzyme testing and EKG it does not appear that it is from an immediately life-threatening cause at this time. Although your testi ng here is normal is critical that you follow-up with your primary care physician for continued evaluation of this chest pain and possible stress testing. I recommended you see your physician within the next 24-48 hours to be evaluated for consideration of a stress test. Please return to emergency department immediately if you have worsening of your chest pain, shortness of breath, vomiting, become unable to exert yourself due to pain or difficulty breathing, you pass out, or have any pain that radiates into your arms, jaw, or back. Please also return if you have any additional symptoms that are concerning to you.
[2018-10-13 17:59] VITALS: BP 105/68
--- NOTE | 2018-10-13 18:31 | EKG REPORT ---
SEVERITY:- NORMAL ECG - SINUS RHYTHM : Confirmed by: Abdifatah Rudolph MD 13-Oct-2018 18:30:09
== END 2018-10-13 17:59 | disposition home or self-care (01) ==
LOC: ER 13:11
DX: R07.9 Chest pain, unspecified (principal); M79.602 Pain in left arm; M25.512 Pain in left shoulder; M25.532 Pain in left wrist; F41.9 Anxiety disorder, unspecified; F17.200 Nicotine dependence, unspecified, uncomplicated
CPT/HCPCS: 36415; 80053; 84484; 85025; 93005; 93010; 99283

== ENCOUNTER 2019-12-15 12:53 | Emergency (ER) | payer BC ==
--- NOTE | 2019-12-15 13:18 | ER Document Report ---
ED Medical Screen (RME) - General Chief Complaint: Chest Pain Stated Complaint: CHEST PAIN Time Seen by Provider: 12/15/19 13:08 Primary Care Provider: RICHARD GARCIA NP [Primary Care Provider] - Follow up as needed TRAVEL OUTSIDE OF THE [place] IN LAST 30 DAYS: No - HPI Notes: 12/15/19 13:17 44-year-old female with past medical history of anxiety to the emergency department with complaints of left-sided chest pain that began Thursday and has persisted. She states she also has had associated left arm pain and nausea with it. She states it seems to get worse when she moves. She denies any shortness of breath. She reports feeling "hot" but no blane diaphoresis. She is a smoker. She is not on any exogenous hormones. Her legs have not been swollen. She has not recently been traveling. She states prior to this starting she had upper back pain from was 2 weeks. She states it was just above where her bra strap line is. Never had a clot. On brief medical screening exam, she does have tenderness to palpation over the left anterior chest wall without crepitus or step-off. I performed a brief medical screening exam on the patient determined that the patient needs further evaluation and management by main side provider. I have placed initial orders to help expedite care. - Related Data Allergies/Adverse Reactions: No Known Allergies Allergy (Verified 12/15/19 13:11) Past Medical History Renal/ Medical History: Reports: Hx Ovarian Cysts. Denies: Hx Peritoneal Dialysis Psychiatric Medical History: Reports: Hx Anxiety - Immunizations Immunizations up to date: No Hx Diphtheria, Pertussis, Tetanus Vaccination: No Physical Exam - Vital signs Vitals: Temp Pulse Resp BP Pulse Ox 98.1 F 103 H 16 112/62 96 12/15/19 13:06 12/15/19 13:06 12/15/19 13:06 12/15/19 13:06 12/15/19 13:06 Course - Vital Signs Vital signs: Temp Pulse Resp BP Pulse Ox 98.1 F 103 H 16 112/62 96 12/15/19 13:06 12/15/19 13:06 12/15/19 13:06 12/15/19 13:06 12/15/19 13:06 Doctor's Discharge - Discharge Referrals: RICHARD GARCIA NP [Primary Care Provider] - Follow up as needed
[2019-12-15 13:43] LABS: ABSOLUTE BASOPHILS # (AUTO) 0.1 10^3/uL (0.0-0.2); ABSOLUTE EOSINOPHILS # (AUTO) 0.1 10^3/uL (0.0-0.6); ABSOLUTE MONOCYTES (AUTO) 0.3 10^3/uL (0.1-1.4); ABSOLUTE NEUT (AUTO) 6.9 10^3/uL (1.7-8.2); BASOPHILS % (AUTO) 0.9 % (0-2); EOSINOPHILS % (AUTO) 0.8 % (0-6); HEMATOCRIT 40.4 % (36.0-47.0); HEMOGLOBIN 14.3 g/dL (12.0-15.5); LYMPHOCYTES % (AUTO) 21.5 % (13-45); MEAN CORPUSCULAR HEMOGLOBIN 31.5 pg (27.0-33.4); MEAN CORPUSCULAR HGB CONC 35.5 g/dL (32.0-36.0); MEAN CORPUSCULAR VOLUME 89 fl (80-97); MONOCYTES % (AUTO) 3.5 % (3-13); PLATELET COUNT 273 10^3/uL (150-450); RED BLOOD COUNT 4.54 10^6/uL (3.72-5.28); SEGMENTED NEUTROPHILS % (AUTO) 73.3 % (42-78); TOTAL CELLS COUNTED % (AUTO) 100 %; WHITE BLOOD COUNT 9.5 10^3/uL (4.0-10.5)
--- NOTE | 2019-12-15 13:53 | ER Document Report ---
ED Medical Screen (RME) - General Chief Complaint: Chest Pain > 30 Stated Complaint: CHEST PAIN Time Seen by Provider: 12/15/19 13:08 Primary Care Provider: RICHARD GARCIA NP [NURSE PRACTITIONER] - Follow up as needed Notes: 44-year-old female [id number] presents with left anterior chest and shoulder pain aching down her left arm which happens for hours at a time and is unrelated to exertion. Been happening intermittently for about a week now, and she was seen in urgent care and told it was nothing but did not have an EKG. She smokes but is stopped smoking for several days and wants to quit forever. She has no cough shortness of breath pleuritic chest pain, hemoptysis or leg swelling. 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 TRAVEL OUTSIDE OF THE [place] IN LAST 30 DAYS: No - Related Data Allergies/Adverse Reactions: No Known Allergies Allergy (Verified 12/15/19 13:11) Past Medical History - General Information source: Patient - Social History Cigarette use (# per day): Yes - The patient ED visit today was directly related to their abuse of tobacco. Chew tobacco use (# tins/day): No Frequency of alcohol use: None Drug Abuse: None Renal/ Medical History: Reports: Hx Ovarian Cysts. Denies: Hx Peritoneal Dialysis Psychiatric Medical History: Reports: Hx Anxiety - Immunizations Immunizations up to date: No Hx Diphtheria, Pertussis, Tetanus Vaccination: No Review of Systems - Review of Systems Notes: REVIEW OF SYSTEMS GEN: Denies fever, chills, weight loss ENT: Denies sore throat, nasal discharge, ear pain EYES: Denies blurry vision, eye pain, discharge CV: Pain RESP: Denies cough, shortness of breath, wheezing GI: Denies abdominal pain, nausea, vomiting, diarrhea MSK: Left shoulder and arm pain SKIN: Denies rash, skin lesions LYMPH: Denies swollen glands/lymph nodes NEURO: Denies headache, focal weakness or numbness, dizziness PSYCH: Denies depression, suicidal or homicidal ideation PHYSICAL EXAMINATION General: No acute distress, well-nourished Head: Atraumatic, normocephalic ENT: Mouth normal, oropharynx moist, no exudates or tonsillar enlargement Eyes: Conjunctiva normal, pupils equal, lids normal Neck: No JVD, supple, no guarding CVS: Normal rate, regular rhythm, no murmurs Resp: No resp distress, equal and normal breath sounds bilaterally. Left pe ctoral and anterior shoulder tenderness, without mass or crepitus. GI: Nondistended, soft, no tenderness to palpation, no rebound or guarding Ext: No deformities, no edema, normal range of motion in upper and lower ext. Mild pain on range of motion and anterior biceps tendon tenderness on the left shoulder. Back: No CVA or midline TTP Skin: No rash, warm Lymphatic: No lymphadeopathy noted Neuro: Awake, alert. Face symmetric. GCS 15. Physical Exam - Vital signs Vitals: Temp Pulse Resp BP Pulse Ox 98.1 F 103 H 16 112/62 96 12/15/19 13:06 12/15/19 13:06 12/15/19 13:06 12/15/19 13:06 12/15/19 13:06 Course - Re-evaluation Re-evalutation: 12/15/19 13:51 Reproducible left-sided chest and shoulder pain most likely musculoskeletal in n ature She does have smoking is a risk factor but is trying to quit and this was discussed further with her The tenderness and pain on range of motion of the left shoulder argues for either rotator cuff or pectoral pathology, given her low overall risk other than smoking, negative labs and EKG do not think she requires further ACS work-up at this time She does not have pleuritic pain or hemoptysis or leg swelling so I think a PE is unlikely and will not be worked up either I will start her on topical lidocaine and systemic NSAIDs, and she will follow- up with her primary I have discussed with the patient there likely diagnosis, aftercare plan, follow-up plans and my usual and customary return precautions. They verbalized understanding of this. - Vital Signs Vital signs: Temp Pulse Resp BP Pulse Ox 98.2 F 103 H 23 H 110/59 L 97 12/15/19 15:50 12/15/19 13:06 12/15/19 15:08 12/15/19 15:50 12/15/19 15:08 - Laboratory Result Diagrams: 12/15/19 13:30 12/15/19 13:30 Laboratory results interpreted by me: 12/15/19 13:30 Glucose 191 H - Diagnostic Test Radiology reviewed: Image reviewed, Reports reviewed - EKG Interpretation by Me EKG shows normal: Sinus rhythm Rate: Normal Rhythm: NSR When compared to previous EKG there are: Previous EKG unavailable Doctor's Discharge - Discharge Clinical Impression: Left anterior shoulder pain Condition: Good Disposition: HOME, SELF-CARE Instructions: Chest Pain of Unclear Cause ([facility]), Exercise Program for the Shoulder ([facility]), Shoulder Injury ([facility]) Prescriptions: Lidocaine [Lidoderm 5% (700 mg) Transdermal Patch] 1 patch TP DAILY #7 adh..patch Naproxen Sodium 220 mg PO RTBIDP PRN #30 tablet PRN Reason: Forms: Return to Work Referrals: RICHARD GARCIA NP [NURSE PRACTITIONER] - Follow up as needed
[2019-12-15 14:02] LABS: ALBUMIN 4.3 g/dL (3.5-5.0); ALKALINE PHOSPHATASE 97 U/L (38-126); ANION GAP 11 (5-19); ASPARTATE AMINO TRANSFERASE 15 U/L (14-36); BILIRUBIN,DIRECT 0.1 mg/dL (0.0-0.4); BILIRUBIN,TOTAL 0.5 mg/dL (0.2-1.3); BLOOD UREA NITROGEN 14 mg/dL (7-20); CALCIUM 9.3 mg/dL (8.4-10.2); CARBON DIOXIDE 23 mmol/L (22-30); CHLORIDE 104 mmol/L (98-107); GLUCOSE 191 mg/dL (75-110); POTASSIUM 3.9 mmol/L (3.6-5.0)
--- NOTE | 2019-12-15 14:17 | RADIOLOGY REPORT (SQ) ---
EXAM DESCRIPTION: CHEST 2 VIEWS IMAGES COMPLETED DATE/TIME: 12/15/2019 2:02 pm REASON FOR STUDY: left sided chest pain, nausea, left arm pain COMPARISON: 08/25/2018 EXAM PARAMETERS: NUMBER OF VIEWS: two views TECHNIQUE: Digital Frontal and Lateral radiographic views of the chest acquired. RADIATION DOSE: NA LIMITATIONS: none FINDINGS: LUNGS AND PLEURA: No opacities, masses or pneumothorax. No pleural effusion. MEDIASTINUM AND HILAR STRUCTURES: No masses or contour abnormalities. HEART AND VASCULAR STRUCTURES: Heart normal size. No evidence for failure. BONES: No acute findings. HARDWARE: None in the chest. OTHER: No other significant finding. IMPRESSION: NO ACUTE RADIOGRAPHIC FINDING IN THE CHEST. TECHNICAL DOCUMENTATION: JOB ID: [id number] [employer]- All Rights Reserved Reading location - IP/workstation name: [email or web address]
[2019-12-15] MEDS ORDERED: MAGNESIUM SULFATE/D5W 1 GM/100 ML RTUPB IV ONE (14:31)
[2019-12-15 16:02] VITALS: BP 110/59
--- NOTE | 2019-12-15 18:27 | EKG REPORT ---
SEVERITY:- BORDERLINE ECG - SINUS RHYTHM BORDERLINE T ABNORMALITIES, ANTERIOR LEADS : Confirmed by: Abdifatah Rudolph MD 15-Dec-2019 18:26:09
== END 2019-12-15 16:00 | disposition home or self-care (01) ==
LOC: ER 12:53
DX: M25.512 Pain in left shoulder (principal); R07.9 Chest pain, unspecified
CPT/HCPCS: 93005; 99285; 96365; 36415; 85025; 80053; 84484; 71046; 93010; J3475